=== PATIENT | male | born 1950 | race Caucasian/White ===

== ENCOUNTER 2017-06-04 11:41 | Emergency (ER) | payer OTHER ==
[2017-06-04 12:07] VITALS: BMI 26.5
[2017-06-04 12:19] LABS: BASOPHILS # (AUTO) 0.1 X10^3/uL (0.0-0.1); BASOPHILS % (AUTO) 0.9 % (0.2-1.0); EOSINOPHILS # (AUTO) 0.2 x10^3/uL (0.0-0.2); EOSINOPHILS % (AUTO) 2.6 % (0.9-2.9); HEMOGLOBIN 15.1 g/dL (13.5-18.0); LYMPHOCYTES # (AUTO) 3.6 X10^3/uL (1.3-2.9); LYMPHOCYTES % (AUTO) 41.9 % (21.0-51.0); MEAN CORPUSCULAR HEMOGLOBIN 27.1 pg (27.0-34.0); MEAN CORPUSCULAR HGB CONC 34.2 g/dL (33.0-35.0); MEAN PLATELET VOLUME 8.7 fL (7.4-11.0); MONOCYTES # (AUTO) 0.9 x10^3/uL (0.3-0.8); MONOCYTES % (AUTO) 10.3 % (0.0-13.0); NEUTROPHILS # (AUTO) 3.8 x10^3/uL (2.2-4.8); NEUTROPHILS % (AUTO) 44.3 % (42.0-75.0); PLATELET COUNT 224 X10^3/uL (150.0-450.0); RED BLOOD COUNT 5.57 X10^6/uL (4.7-6.0); RED CELL DISTRIBUTION WIDTH 18.3 % (11.6-16.5); WHITE BLOOD COUNT 8.5 X10^3/uL (3.6-10.0)
--- NOTE | 2017-06-04 12:23 | DR.GENAD ---
HPI - PCP Primary Care Physician: HOSSEIN - Complaint/Symptoms Chief Complaint Doctors Comments: He complains of generalized fatigue x 2 days. He has had up and downs in his BP values in the past month and his PCP has been working on his meds. He states there is some light headedness when he gets up on his his feet. There is no palpitation, SOB or chest pain. 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 Chief Complaint:: PT. C/O HIGH BLOOD PRESSURE X 1 MONTH. PT. HAS BEEN SEEING PCP AND HAVING HIS MEDICATIONS ADJUSTED. PT. ALSO C/O FEELING FLUSHED, FATIGUE, NAUSEA, AND DIZZINESS. PT. STATES HE HAS FELT WORSE THIS PAST WEEK. - Nurses notes reviewed Nurses Notes Review: Yes - Source History Provided: Patient, Family Member - Mode of Arrival Mode of Arrival: Ambulatory - Timing Onset of Chief Complaint: 05/05/17 Came on: Gradually - Duration Duration: Days - Severity Severity: Mild - Modifying Factors Worsens:: dizziness with rising up - Associated Signs and Symptoms Associated Signs and Symptoms: nausea without vomitting PMH - PMH Past Medical History: Yes Past Medical History: Arthritis, Coronary Artery Disease, Dyslipidemia, GERD, Hypertension Past Surgical History: Yes Surgical History: CABG/Valve Surgery, Other Past Surgical History Comment: BACK - Family History History of Family Medical Conditions: Yes Family Medical History: Diabetes Mellitus, Cancer, [place], Coronary Artery Disease, Hypertension - Social History Does patient currently use any type of tobacco product: No Have you used tobacco products in the last 12 months: No Type of Tobacco Use: None Does any household member use tobacco: No Alcohol Use: None Do you use any recreational Drugs:: No Lives With: Spouse Lives Where: Home - infectious screening In the last 2 months have you had wt loss of >10#?: NO Have you had fever, night sweats or hemotysis?: No Have you traveled outside the country in the last 6 months?: No Isolation: Standard ROS - Review of Systems Constitutional: Fatigue Eyes: No Symptoms Reported ENTM: No Symptoms Reported Respiratoy: No Symptoms Reported Cardiovascular: No Symptoms Reported Gastrointestinal/Abdominal: No Symptoms Reported Genitourinary: No Symptoms Reported Neurological: Weakness, Dizziness Musculoskeletal: No Symptoms Reported Integumentary: No Symptoms Reported Hematologic/Lymphatic: No Symptoms Reported Endocrine: No Symptoms Reported Psychiatric: No Symptoms Reported All Other Systems: Reviewed and Negative PE - Vital Signs Vitals: Temperature 97.9 F Pulse Rate [Apical] 55 Pulse Rate 59 Respiratory Rate 12 Blood Pressure [Left Arm] 143/83 Blood Pressure 136/87 O2 Sat by Pulse Oximetry 93 - General Limitations: No Limitations General Appearance: Alert, In No Apparent Distress - Head Head Exam: Normal Inspection, Atraumatic - Eyes Eye exam: Normal Appearance, PERRL, EOMI - ENT ENT Exam: Normal Exam, Normal Oropharynx, Normal External Ear Exam, Mucous Membranes Moist External Ear Exam: Normal External Inspection Nose Exam: Normal Nose Exam Mouth Exam: Normal Inspection Throat Exam: Normal Inspection - Neck Neck Exam: Normal Inspection, Full ROM, Trachea Midline - Chest Chest Inspection: Normal Inspection, Symmetric Chest Wall Rise - Respiratory Respiratory Exam: Normal Lung Sounds Bilat - Cardiovascular Cardiovascular Exam: Regular Rate, Normal Rhythm - Abdominal Exam Abdominal Exam: Normal Inspection, Normal Bowel Sounds, Soft - Extremities Extremities Exam: Normal Inspection, Full ROM, Tenderness - Back Back Exam: Normal Inspection - Neurologic Neurological Exam: Alert, Oriented X3, CN II-XII Intact - Psychiatric Psychiatric Exam: Normal Affect, Normal Mood - Skin Skin Exam: Warm ROR - Labs Reviewed Result Diagrams: 06/04/17 12:10 06/04/17 12:10 Laboratory: WBC 8.5 X10^3/uL (3.6-10.0) 06/04/17 12:10 RBC 5.57 X10^6/uL (4.7-6.0) 06/04/17 12:10 Hgb 15.1 g/dL (13.5-18.0) 06/04/17 12:10 Hct 44.0 % (42.0-54.0) 06/04/17 12:10 MCV 79.0 fL (80.0-100.0) L 06/04/17 12:10 MCH 27.1 pg (27.0-34.0) 06/04/17 12:10 MCHC 34.2 g/dL (33.0-35.0) 06/04/17 12:10 RDW 18.3 % (11.6-16.5) H 06/04/17 12:10 Plt Count 224 X10^3/uL (150.0-450.0) 06/04/17 12:10 MPV 8.7 fL (7.4-11.0) 06/04/17 12:10 Neut % 44.3 % (42.0-75.0) 06/04/17 12:10 Lymph % 41.9 % (21.0-51.0) 06/04/17 12:10 [place] % 10.3 % (0.0-13.0) 06/04/17 12:10 Eos % 2.6 % (0.9-2.9) 06/04/17 12:10 Baso % 0.9 % (0.2-1.0) 06/04/17 12:10 Neut # 3.8 x10^3/uL (2.2-4.8) 06/04/17 12:10 Lymph # 3.6 X10^3/uL (1.3-2.9) H 06/04/17 12:10 [place] # 0.9 x10^3/uL (0.3-0.8) H 06/04/17 12:10 Eos # 0.2 x10^3/uL (0.0-0.2) 06/04/17 12:10 Baso # 0.1 X10^3/uL (0.0-0.1) 06/04/17 12:10 Absolute Nucleated RBC 0.0 /100WBC 06/04/17 12:10 INR Target Range - 06/04/17 12:10 INR 1.06 (0.8-1.3) 06/04/17 12:10 PTT 25.0 SECONDS (22.9-36.5) 06/04/17 12:10 PTT Comment - 06/04/17 12:10 Sodium 139 mmol/L (136-145) 06/04/17 12:10 Corrected Sodium TNP 06/04/17 12:10 Potassium 3.8 mmol/L (3.5-5.1) 06/04/17 12:10 Chloride 103 mmol/L (98-107) 06/04/17 12:10 Carbon Dioxide 28.4 mmol/L (21-32) 06/04/17 12:10 BUN 12 mg/dL (7-18) 06/04/17 12:10 Creatinine 0.71 mg/dL (0.70-1.30) 06/04/17 12:10 Est GFR (MDRD) Af Amer > 60 (>60) 06/04/17 12:10 Est GFR (MDRD) Non-Af > 60 (>60) 06/04/17 12:10 Glucose 82 mg/dL (65-99) 06/04/17 12:10 Calcium 9.1 mg/dL (8.5-10.1) 06/04/17 12:10 Corrected Calcium TNP 06/04/17 12:10 Total Bilirubin 0.50 mg/dL (0.2-1.0) 06/04/17 12:10 AST 30 Units/L (15-37) 06/04/17 12:10 ALT 63 Units/L (12-78) 06/04/17 12:10 Alkaline Phosphatase 71 Units/L (46-116) 06/04/17 12:10 Creatine Kinase 26 Units/L (39-308) L 06/04/17 12:10 CK-MB (CK-2) < 1.0 ng/mL (0-4.0) 06/04/17 12:10 CK/CKMB % Calc 3.9 % (<4) 06/04/17 12:10 Troponin I < 0.02 ng/mL (0-1.5) 06/04/17 12:10 Total Protein 7.2 g/dL (6.4-8.2) 06/04/17 12:10 Albumin 3.7 g/dL (3.4-5.0) 06/04/17 12:10 Globulin 3.5 g/dL (2.5-4.5) 06/04/17 12:10 Albumin/Globulin Ratio 1.1 Ratio (1.1-2.1) 06/04/17 12:10 TSH 3rd Generation 0.770 uIU/mL (0.358-3.74) 06/04/17 12:10 - XRAY XRAY Interpreted by: Self (CXR: No infiltrate. KUB: No obstruction or pneumatosis, retention screws on L4 & L5 ) - EKG Rate: 55 Rhythm: SB Block: None Hypertrophy: LAE - Diagnosis Discharge Problem: General weakness, Light-headed - Discharge Plan Disposition: 01 HOME, SELF-CARE Condition: Stable - Follow ups/Referrals Follow ups/Referrals: CRYSTAL CATALAN [Primary Care Provider] - 3 days - Instructions
[2017-06-04 12:33] LABS: BLOOD UREA NITROGEN 12 mg/dL (7-18); CALCIUM 9.1 mg/dL (8.5-10.1); CARBON DIOXIDE 28.4 mmol/L (21-32); CHLORIDE 103 mmol/L (98-107); CREATININE 0.71 mg/dL (0.70-1.30); SODIUM 139 mmol/L (136-145); TROPONIN I < 0.02 ng/mL (0-1.5); eGFR BLACK RACES > 60 (>60); eGFR NON BLACK RACES > 60 (>60)
[2017-06-04 12:37] LABS: ALANINE AMINOTRANSFERASE 63 Units/L (12-78); ALBUMIN 3.7 g/dL (3.4-5.0); ALKALINE PHOSPHATASE 71 Units/L (46-116); ASPARTATE AMINO TRANSFERASE 30 Units/L (15-37); CKMB % 3.9 % (<4); CREATINE KINASE 26 Units/L (39-308); CREATINE KINASE MB < 1.0 ng/mL (0-4.0); TOTAL PROTEIN 7.2 g/dL (6.4-8.2)
--- NOTE | 2017-06-04 13:52 | RAD ---
HISTORY: Weakness, fatigue, nausea Study: KUB, single view abdomen Comparison: None Findings: There is a normal bowel gas pattern. A benign-appearing 3 mm radiopaque density of uncertain etiology projects over the left mid abdomen. Lumbar fusion hardware and scoliosis are noted. IMPRESSION: No definite acute radiographic abnormality. Benign-appearing 3 mm radiopaque density projected over t he left mid abdomen of uncertain etiology. Reported By:
--- NOTE | 2017-06-04 13:54 | RAD ---
History: Weakness Study: Portable AP chest Comparison: None Findings: The heart size is normal status post old sternotomy. The lungs are clear. There is no edema or effusion. Impression: No acute cardiopulmonary disease Reported By:
[2017-06-04 14:06] VITALS: BP 136/83
== END 2017-06-04 14:13 | disposition home or self-care (01) ==
LOC: ER 11:41
DX: R53.1 Weakness (principal); R42 Dizziness and giddiness
CPT/HCPCS: 36415; 71010; 74000; 80053; 82550; 82553; 84443; 84484; 85025; 85610; 85730; 93005; 93010; 99283